=== PATIENT | male | born 1965 | race Two or more races ===

== ENCOUNTER 2020-03-07 12:54 | Emergency (ER) | payer OTHER ==
[2020-03-07 13:06] VITALS: BP 127/68; PULSE 96; TEMP 98.6; BMI 25.0
[2020-03-07] MEDS ORDERED: POLYETHYLENE GLYCOL 3350 119 GM BTL PO ONE (13:07)
[2020-03-07] MEDS ORDERED: LACTULOSE 20 GM/30 ML UDC (FOR ORAL USE ONLY) PO ONE (13:07)
--- NOTE | 2020-03-07 13:07 | PDOC ---
Rapid Medical Evaluation Chief Complaint: Pain, Acute Time Seen by Provider: 03/07/20 13:02 Medical Evaluation: Allergies Allergy/AdvReac Type Severity Reaction Status Date / Time No Known Allergies Allergy Verified 03/07/20 13:02 03/07/20 13:03 I have performed a brief in-person evaluation of this patient. The patient presents with a chief complaint of: h/o HPL, HTN present with complains of constipation with lower abdominal worsening pain . report last BM was 2 days ago. Denies N/V or diarrhea. report usually have BM every day. Denies any abd surgical history. Denies abd symptoms. report tried 2 enemas with improvement Pertinent physical exam findings: A&O x 3 in mild distress holding lower abdomen I have ordered the following: KUB, cbc, cmp, lactulose, miralax The patient will proceed to the ED for further evaluation. Discharge Disposition - Diagnosis Constipation Qualifiers: Constipation type: unspecified constipation type Qualified Code(s): K59.00 - Constipation, unspecified Abdominal pain Qualifiers: Abdominal location: lower abdomen, unspecified Qualified Code(s): R10.30 - Lower abdominal pain, unspecified - Discharge Dispostion Condition at time of disposition: Stable - Referrals - Patient Instructions - Post Discharge Activity
[2020-03-07] MEDS ORDERED: LACTULOSE 20 GM/30 ML UDC (FOR ORAL USE ONLY) ONE (13:40)
== END 2020-03-07 13:55 | disposition left against medical advice (07) ==
LOC: JER 12:54
DX: K59.00 Constipation, unspecified (principal); R10.0 Acute abdomen
CPT/HCPCS: 99283-25